=== PATIENT | male | born 1990 | race Caucasian/White ===

== ENCOUNTER 2016-11-28 19:58 | Emergency (ER) | payer SELFPAY ==
[~2016-11-28] VITALS: Ht 167.6 cm; Wt 101.5 kg
[~2016-11-28 19:58] MED LIST: BISA10SU58 PR; HYDR-1666 PO; POLY17PO6 PO
[2016-11-28 20:02] VITALS: Ht 167.6 cm; Wt 101.5 kg
== END 2016-11-29 02:02 | disposition left against medical advice (07) ==
LOC: FTE 19:58
DX: Z53.21 Procedure and treatment not carried out due to patient leaving prior to being seen by health care provider (principal)